=== PATIENT | male | born 1965 | race Caucasian/White ===

== ENCOUNTER 2021-06-09 19:14 | Inpatient (IN) ==
[2021-06-09] MEDS ORDERED: ALBUT/IPRATROP 3MG/0.5MG NEB 3 ML VIAL NEB STA (20:27)
[2021-06-09] MEDS ORDERED: dexAMETHasone**PF** 10 MG/ML VIAL IV ONE (20:27)
[2021-06-09] MEDS ORDERED: SODIUM CHLORIDE 0.9% 1000ML 500 ML IV ONE (20:28)
--- NOTE | 2021-06-09 20:31 | Emergency Department Note ---
Impression & Plan Hypoxia, SOB (shortness of breath), Pneumonia, COVID-19 ED Provider Note NAME: ECTOR BLANKENSHIP AGE: 55 SEX: M : 1965 ARRIVES VIA: Walk-In INFORMANT: [Patient] ED PROVIDER(S): [Chico Hanley MD] CHIEF COMPLAINT: Illness HISTORY OF PRESENT ILLNESS: The patient is a 55-year-old male presents with flulike symptoms. He has had a cough and some chest congestion with fatigue for the last 10 days. 7 days ago, he tested positive for COVID-19. The patient is not vaccinated against COVID-19. The patient is short of breath with any exertion. He states that he still feels quite washed out. He was told that he could return to work today given the timing although, did not feel well enough. The patient has no history of lung disease or heart disease. He states he is ot herwise healthy. He is not a smoker, he does not vape. REVIEW OF SYSTEMS: See HPI for pertinent positives and negatives. A total of ten systems were reviewed and were otherwise negative. PMHx/PSHx: See Below SOCIAL HISTORY: See Below. PHYSICAL EXAM: GENERAL: Patient is in no acute distress. HEENT: No acute trauma, normocephalic atraumatic, mucous membranes moist, no nasal congestion, no scleral icterus. NECK: No stridor, no adenopathy, no meningismus, trachea is midline. LUNGS: Crackles at both bases especially on the right, no respiratory distress noted. No wheezing. HEART: Without murmurs gallops or rubs, regular rate and rhythm. ABDOMEN: Soft, nontender, bowel sounds positive, no hernias, no peritonitis. EXTREMITIES: No cyanosis or edema, full range of motion of all the joints without pain or difficulty, no signs for acute trauma. NEUROLOGIC: Oriented x 3, no acute motor or sensory deficits, no focal weakness. SKIN: No rash, no jaundice, no diaphoresis. DIFFERENTIAL DIAGNOSIS: Reactive airway disease, pneumonia, pneumothorax, COPD, CHF, infection, COVID- 19, cardiac ischemia, pulmonary embolism, bronchitis, musculoskeletal, gastrointestinal, as well as other pathologies. EMERGENCY DEPARTMENT COURSE/PROCEDURES: Critical Care Note: I have personally spent 47 minutes of critical care time in the direct management of this patient. This includes bedside care, interpretation of diagnostic studies, and testing, discussion with consultants, patient, and family members, and other required patient management activities. This 47 minutes is in excess of all separately billable procedures. MEDICAL DECISION MAKING: There is no leukocytosis or worrisome anemia. There is a slight elevation to the platelet count. Sodium was somewhat low but not critical or in need of emergent correction. No kidney failure. Lactic acid level was not elevated making sepsis less likely. No worrisome liver enzyme elevation. The patient did test positive for Covid as an outpatient. Repeat Covid testing here in the ED is pending. Chest film shows a bilateral pneumonia consistent with a Covid pneumonia. On exam, the patient was hypoxic without oxygen. He had crackles in both lower lung faith. The patient was given IV saline, IV Decadron and albuterol via MDI, he is resting comfortably. He seems to be doing well with oxygen supplementation. The patient presents hypoxic and short of breath. He has bilateral pneumonia by chest x-ray. He has a Covid infection and with his hypoxia, he requires a hospital stay. I spoke to the patient and case maker. The on-call hospitalist was consulted. Past Med/Surg History Medical History (Updated 06/10/21 @ 00:03 by Chico Hanley MD) No significant medical problems Social History Smoking Status: Never smoker Feels Safe at Home: Yes Allergies Allergies Allergy/AdvReac Type Severity Reaction Status Date / Time No Known Allergies Allergy Unverified 06/09/21 20:18 Home Meds Home Medications Medication Instructions Recorded Confirmed No Known Home Medications 06/09/21 06/09/21 Results & Data (ED) Vital Signs Vital Signs - 24 hr 06/09/21 19:26 06/09/21 19:38 06/09/21 20:00 Temperature 37.2 C Temperature Source Temporal Artery Scan Pulse Rate 102 H 96 H 92 H Pulse Rate [Finger] Pulse Rate from SpO2 Sensor 97 H 91 H Pulse Rhythm Respiratory Rate 16 25 H 12 Respiratory Effort / Characteristics Non-Labored Spontaneous Respiratory Depth Normal Blood Pressure 126/78 142/76 H Blood Pressure Mean 94 98 Blood Pressure Position Sitting Pulse Oximetry 87 L 90 94 Oxygen Delivery Method Room Air Oxygen Flow Rate Sepsis Recent Fever Within 48 Hours No Sepsis New/Unexplained Change in Mental Status N/A Sepsis Action Taken by Nursing No Action Required 06/09/21 20:19 06/09/21 20:31 06/09/21 20:36 Temperature Temperature Source Pulse Rate 90 92 H Pulse Rate [Finger] 90 Pulse Rate from SpO2 Sensor 93 H Pulse Rhythm Regular Respiratory Rate 18 18 20 Respiratory Effort / Characteristics Non-Labored Spontaneous Respiratory Depth Blood Pressure 160/69 H Blood Pressure Mean 99 Blood Pressure Position Pulse Oximetry 92 88 L 94 Oxygen Delivery Method Nasal Cannula Nasal Cannula Oxygen Flow Rate 4 4 Sepsis Recent Fever Within 48 Hours Sepsis New/Unexplained Change in Mental Status Sepsis Action Taken by Nursing 06/09/21 21:00 06/09/21 21:30 06/09/21 22:00 Temperature Temperature Source Pulse Rate 96 H 95 H 94 H Pulse Rate [Finger] Pulse Rate from SpO2 Sensor 96 H 95 H 94 H Pulse Rhythm Respiratory Rate 18 14 23 Respiratory Effort / Characteristics Respiratory Depth Blood Pressure 150/76 H 151/90 H 140/84 Blood Pressure Mean 100 110 102 Blood Pressure Position Pulse Oximetry 87 L 94 90 Oxygen Delivery Method Oxygen Flow Rate Sepsis Recent Fever Within 48 Hours Sepsis New/Unexplained Change in Mental Status Sepsis Action Taken by Nursing 06/09/21 22:30 Temperature Temperature Source Pulse Rate 93 H Pulse Rate [Finger] Pulse Rate from SpO2 Sensor 92 H Pulse Rhythm Respiratory Rate 14 Respiratory Effort / Characteristics Respiratory Depth Blood Pressure 138/80 Blood Pressure Mean 99 Blood Pressure Position Pulse Oximetry 92 Oxygen Delivery Method Oxygen Flow Rate Sepsis Recent Fever Within 48 Hours Sepsis New/Unexplained Change in Mental Status Sepsis Action Taken by Retirement Medications Current Medication List: was personally reviewed by me Laboratory Data Attestation: I reviewed the patient's lab results. Result diagrams: 06/09/21 19:45 06/09/21 19:45 Lab Results 06/09/21 06/09/21 06/09/21 Range/Units 19:45 19:45 19:45 WBC 9.30 (4.8-10.8) K/uL RBC 4.82 (4.7-6.1) M/uL Hgb 13.9 L (14.0-18.0) g/dL Hct 40.0 L (42-52) % MCV 83.0 (80-100) fL MCH 28.8 (25-34) pg MCHC 34.8 (32-36) g/dL RDW Std Deviation 39.3 (36.4-46.3) fL RDW Coeff of Coco 12.9 (11.5-14.5) % Plt Count 455 H (130-400) K/uL MPV 9.7 (7.4-10.4) fL Immature Gran % (Auto) 0.3 % Neut % (Auto) 75.3 % Lymph % (Auto) 11.3 % [place] % (Auto) 12.3 % Eos % (Auto) 0.6 % Baso % (Auto) 0.2 % Neut # (Auto) 7.00 H (1.4-6.5) K/uL Lymph # (Auto) 1.05 L (1.2-3.4) K/uL [place] # (Auto) 1.14 H (0.11-0.59) K/uL Eos # (Auto) 0.06 (0-0.5) K/uL Baso # (Auto) 0.02 (0-0.2) K/uL Immature Gran # (Auto) 0.03 H (0.00-0.02) K/uL APTT 27.6 (21.0-31.0) Seconds PTT Ratio 1.0 Sodium 134 L (136-145) mmol/L Potassium 3.9 (3.5-5.1) mmol/L Chloride 101 (98-107) mmol/L Carbon Dioxide 25 (21-32) mmol/L Anion Gap 9.0 (3-11) BUN 9 (7-18) mg/dl Creatinine 0.80 (0.6-1.4) mg/dl Est Cr Clr Drug Dosing 122.4 ml/min Est GFR ( Amer) 115.7 ml/min Est GFR (Non-Af Amer) 99.9 ml/min BUN/Creatinine Ratio 10.6 (10-20) Glucose 110 H (70-99) mg/dl Lactate (0.4-2.0) mmol/L Calcium 8.9 (8.5-10.1) mg/dl Magnesium (1.8-2.4) mg/dl Total Bilirubin 0.7 (0.2-1) mg/dl AST 40 H (15-37) U/L ALT 48 (12-78) U/L Alkaline Phosphatase 59 (45-117) U/L Total Protein 7.5 (6.4-8.2) gm/dl Albumin 2.6 L (3.4-5.0) gm/dl Globulin 4.9 H (2.5-4.0) gm/dl Albumin/Globulin Ratio 0.5 L (0.9-2) Specimen Hemolysis COVID-19 Eval Order 06/09/21 06/09/21 06/09/21 Range/Units 19:45 21:09 22:10 WBC (4.8-10.8) K/uL RBC (4.7-6.1) M/uL Hgb (14.0-18.0) g/dL Hct (42-52) % MCV (80-100) fL MCH (25-34) pg MCHC (32-36) g/dL RDW Std Deviation (36.4-46.3) fL RDW Coeff of Coco (11.5-14.5) % Plt Count (130-400) K/uL MPV (7.4-10.4) fL Immature Gran % (Auto) % Neut % (Auto) % Lymph % (Auto) % [place] % (Auto) % Eos % (Auto) % Baso % (Auto) % Neut # (Auto) (1.4-6.5) K/uL Lymph # (Auto) (1.2-3.4) K/uL [place] # (Auto) (0.11-0.59) K/uL Eos # (Auto) (0-0.5) K/uL Baso # (Auto) (0-0.2) K/uL Immature Gran # (Auto) (0.00-0.02) K/uL APTT (21.0-31.0) Seconds PTT Ratio Sodium (136-145) mmol/L Potassium (3.5-5.1) mmol/L Chloride (98-107) mmol/L Carbon Dioxide (21-32) mmol/L Anion Gap (3-11) BUN (7-18) mg/dl Creatinine (0.6-1.4) mg/dl Est Cr Clr Drug Dosing ml/min Est GFR ( Amer) ml/min Est GFR (Non-Af Amer) ml/min BUN/Creatinine Ratio (10-20) Glucose (70-99) mg/dl Lactate 1.1 (0.4-2.0) mmol/L Calcium (8.5-10.1) mg/dl Magnesium 2.6 H (1.8-2.4) mg/dl Total Bilirubin (0.2-1) mg/dl AST (15-37) U/L ALT (12-78) U/L Alkaline Phosphatase (45-117) U/L Total Protein (6.4-8.2) gm/dl Albumin (3.4-5.0) gm/dl Globulin (2.5-4.0) gm/dl Albumin/Globulin Ratio (0.9-2) Specimen Hemolysis COVID-19 Eval Order Covid19 at [facility] Administered Medications Remdesivir 200 mg/ Sodium (Chloride) 250 mls @ 125 mls/hr IV ONE STA; Protocol Stop: 06/09/21 23:57 Last Admin: 06/09/21 22:38 Dose: 125 mls/hr Documented by: [id number] Discontinued Medications Albuterol (Albut/Ipratrop 3mg/0.5mg Neb 3 Ml Vial) 3 ml NEB NOW STA Stop: 06/09/21 20:28 Last Admin: 06/09/21 20:35 Dose: 3 ml Documented by: [id number] Dexamethasone Sodium Phosphate (DexamethasonePf 10 Mg/Ml Vial) 6 mg IV NOW ONE Stop: 06/09/21 20:28 Last Admin: 06/09/21 20:33 Dose: 6 mg Documented by: [id number] Sodium Chloride (Nss 1000ml) 500 mls @ 999 mls/hr IV .Q31M ONE Stop: 06/09/21 20:58 Last Infusion: 06/09/21 21:15 Dose: 0 mls/hr Documented by: [id number] Admin: 06/09/21 20:33 Dose: 999 mls/hr Documented by: [id number] Imaging Data Radiologist's Impression: Chest X-Ray 06/09/21 20:27 XR chest 1V portable CLINICAL HISTORY: Shortness of breath. COMPARISON STUDY: No previous studies for comparison. FINDINGS: No pneumothorax or pleural effusion is noted. There is mild enlargement of the cardiac silhouette. Moderate to extensive bilateral airspace opacities are present. IMPRESSION: Moderate to extensive bilateral airspace opacities suggestive of an infectious process such as viral pneumonia. Radiographic follow-up to ensure resolution is recommended. ACT 112: Negative or not required by law. Electronically signed by: Anthony Grigsby M.D. 06/09/2021 9:03 PM Discharge Plan Visit Data Chief Complaint: Illness Stated Complaint: COVID+, SOB, WEAK ED Provider: Chico Hanley Discharge Problem: Hypoxia, SOB (shortness of breath), Pneumonia, COVID-19 Patient Disposition: Admitted As Inpatient Condition: Fair Forms Stand Alone Forms: [place] Prescriptions Prescriptions: No Action No Known Home Medications RF: 0 Referrals Referrals: PCP,NO [Primary Care Provider] -
[2021-06-09 20:49] LABS: Basophils # (auto) 0.02 K/uL (0-0.2); Basophils % (auto) 0.2 %; Eosinophils # (auto) 0.06 K/uL (0-0.5); Eosinophils % (auto) 0.6 %; Hemoglobin 13.9 g/dL (14.0-18.0); Immature Granulocytes # (auto) 0.03 K/uL (0.00-0.02); Immature Granulocytes % (auto) 0.3 %; Lymphocytes # (auto) 1.05 K/uL (1.2-3.4); Lymphocytes % (auto) 11.3 %; Mean Corpuscular Hemoglobin 28.8 pg (25-34); Mean Corpuscular Hgb Conc 34.8 g/dL (32-36); Mean Platelet Volume 9.7 fL (7.4-10.4); Monocytes # (auto) 1.14 K/uL (0.11-0.59); Monocytes % (auto) 12.3 %; Neutrophils % (auto) 75.3 %; Platelet Count 455 K/uL (130-400); RDW Coefficient of Variation 12.9 % (11.5-14.5); RDW Standard Deviation 39.3 fL (36.4-46.3); Red Blood Count 4.82 M/uL (4.7-6.1)
--- NOTE | 2021-06-09 21:04 | XRay Report ---
XR chest 1V portable CLINICAL HISTORY: Shortness of breath. COMPARISON STUDY: No previous studies for comparison. FINDINGS: No pneumothorax or pleural effusion is noted. There is mild enlargement of the cardiac silh ouette. Moderate to extensive bilateral airspace opacities are present. IMPRESSION: Moderate to extensive bilateral airspace opacities suggestive of an infectious process s uch as viral pneumonia. Radiographic follow-up to ensure resolution is recommended. ACT 112: Negative or not required by law. Electronically signed by: Anthony Grigsby M.D. 06/09/2021 9:03 PM
[2021-06-09 21:10] LABS: Albumin Globulin Ratio 0.5 (0.9-2); Albumin Level 2.6 gm/dl (3.4-5.0); BUN Creatinine Ratio 10.6 (10-20); Bilirubin,Total 0.7 mg/dl (0.2-1); Calcium 8.9 mg/dl (8.5-10.1); Creatinine Clr Calc Pharmacy 122.4 ml/min; Est GFR (African American) 115.7 ml/min; Est GFR (Non-African American) 99.9 ml/min; Globulin 4.9 gm/dl (2.5-4.0); Potassium 3.9 mmol/L (3.5-5.1); Total Protein 7.5 gm/dl (6.4-8.2)
[2021-06-09 21:44] LABS: Partial Thromboplastin Time 27.6 Seconds (21.0-31.0)
--- NOTE | 2021-06-09 21:52 | History & Physical Report ---
Date of Service June 09, 2021 Assessment & Plan (1) Acute hypoxemic respiratory failure: Plan: Secondary to severe COVID-19 pneumonia Situational hypertension Possible chronic BP elevation given cardiomegaly on CXR New onset anemia, no overt source of bleed Hyperglycemia rule out DM Medical telemetry Supplemental O2 Decadron, Remdesivir for severe COVID-19 pneumonia (Patient was counseled regarding potential adverse effects from Remdesivir therapy and provided with patient education sheet.) Pulmonary consult if without improvement Monitor BP, initiate Amlodipine if with persistent elevation Anemia work-up, transfuse PRBC if hemoglobin less than 7 and or for symptomatic anemia Check hemoglobin A1c DVT prophylaxis. Lovenox subcu Full code Text document was generated using [employer] voice recognition software. It may contain grammatical or spelling errors. Kindly contact undersigned for clarification of any documentation item in question. History of Present Illness Chief Complaint: Worsening shortness of breath, history Covid Primary Care Provider: NO PCP Patient would like to be set up with a [facility] provider upon discharge. No significant medical history. 10 days ago patient had dry cough symptoms with some chest congestion and fatigue symptoms. No chest pain. Sick COVID-19 contacts at home. Outpatient COVID-19 test from urgent care center from last week was positive. Supportive management and isolation recommended. Patient has not received the Covid 19 vaccine. Cough symptoms noted to be clear with worsening shortness of breath as per patient. O2 sats noted to be 80s on room air upon arrival at the ER. Decadron and neb treatment administered at the ER. Medical History as above 2016 colonoscopy was normal Surgical History : Inguinal hernia repair, tonsillectomy/adenoidectomy Family History : Kidney cancer Personal/Social history : Non-smoker, occasional EtOH intake, [employer] employee Allergies Allergy/AdvReac Type Severity Reaction Status Date / Time No Known Allergies Allergy Unverified 06/09/21 20:18 Home Medications Medication Instructions Recorded Confirmed Type No Known Home Medications 06/09/21 06/09/21 History Past Med/Surg History Medical History (Updated 06/10/21 @ 10:02 by Andrew Reddy MD) No significant medical problems Social History Smoking Status: Former smoker Hx Alcohol Use: Yes Alcohol type: beer Hx Substance Use: No Preferred Language: Ghanaian Communication Ability: Effective General Passenger Agent Required: No Beliefs That Will Affect Care: None Current Living Situation: Spouse and Family Current Living Situation Comment: and children Other Information That Helps Us Care for You: No Feels Safe at Home: Yes Safety Concerns: Feels Safe At This Time Assistive Devices: None Assistive Devices Comment: reading glasses Review of Systems Review of Systems: As per HPI, all 10 systems reviewed, all other ROS negative Physical Exam Physical Exam: GENERAL: Comfortable, pleasant, obese, no respiratory distress SKIN: Normal color, warm HEENT: [place] palpebral conjunctivae, no ptosis, dry buccal mucosa, nasal cannula in place NECK : Supple, no tenderness CHEST : Decreased breath sounds, occasional expiratory wheezes, no tenderness HEART : RRR, no obvious murmurs ABDOMEN: no distention, nontender EXTREMITIES : No LE swelling/tenderness, no other conspicuous deformities noted NEUROLOGIC : Coherent, no facial asymmetry, no other gross focality Results & Data Results & Data ([facility]) Vital Signs (Past 12 Hours) Vital Signs Temp Pulse Pulse Resp BP Pulse Ox 06/09/21 20:36 90 20 94 06/09/21 20:31 92 H 18 160/69 H 88 L 06/09/21 20:19 90 18 92 06/09/21 20:00 92 H 12 142/76 H 94 06/09/21 19:38 96 H 25 H 90 06/09/21 19:26 37.2 C 102 H 16 126/78 87 L Laboratory Results Laboratory Results WBC 9.30 K/uL (4.8-10.8) 06/09/21 19:45 RBC 4.82 M/uL (4.7-6.1) 06/09/21 19:45 Hgb 13.9 g/dL (14.0-18.0) L 06/09/21 19:45 Hct 40.0 % (42-52) L 06/09/21 19:45 MCV 83.0 fL (80-100) 06/09/21 19:45 MCH 28.8 pg (25-34) 06/09/21 19:45 MCHC 34.8 g/dL (32-36) 06/09/21 19:45 RDW Std Deviation 39.3 fL (36.4-46.3) 06/09/21 19:45 RDW Coeff of Coco 12.9 % (11.5-14.5) 06/09/21 19:45 Plt Count 455 K/uL (130-400) H 06/09/21 19:45 MPV 9.7 fL (7.4-10.4) 06/09/21 19:45 Immature Gran % (Auto) 0.3 % 06/09/21 19:45 Neut % (Auto) 75.3 % 06/09/21 19:45 Lymph % (Auto) 11.3 % 06/09/21 19:45 [place] % (Auto) 12.3 % 06/09/21 19:45 Eos % (Auto) 0.6 % 06/09/21 19:45 Baso % (Auto) 0.2 % 06/09/21 19:45 Neut # (Auto) 7.00 K/uL (1.4-6.5) H 06/09/21 19:45 Lymph # (Auto) 1.05 K/uL (1.2-3.4) L 06/09/21 19:45 [place] # (Auto) 1.14 K/uL (0.11-0.59) H 06/09/21 19:45 Eos # (Auto) 0.06 K/uL (0-0.5) 06/09/21 19:45 Baso # (Auto) 0.02 K/uL (0-0.2) 06/09/21 19:45 Immature Gran # (Auto) 0.03 K/uL (0.00-0.02) H 06/09/21 19:45 APTT 27.6 Seconds (21.0-31.0) 06/09/21 19:45 PTT Ratio 1.0 06/09/21 19:45 Sodium 134 mmol/L (136-145) L 06/09/21 19:45 Potassium 3.9 mmol/L (3.5-5.1) 06/09/21 19:45 Chloride 101 mmol/L (98-107) 06/09/21 19:45 Carbon Dioxide 25 mmol/L (21-32) 06/09/21 19:45 Anion Gap 9.0 (3-11) 06/09/21 19:45 BUN 9 mg/dl (7-18) 06/09/21 19:45 Creatinine 0.80 mg/dl (0.6-1.4) 06/09/21 19:45 Est Cr Clr Drug Dosing 122.4 ml/min 06/09/21 19:45 Est GFR ( Amer) 115.7 ml/min 06/09/21 19:45 Est GFR (Non-Af Amer) 99.9 ml/min 06/09/21 19:45 BUN/Creatinine Ratio 10.6 (10-20) 06/09/21 19:45 Glucose 110 mg/dl (70-99) H 06/09/21 19:45 Lactate 1.1 mmol/L (0.4-2.0) 06/09/21 21:09 Calcium 8.9 mg/dl (8.5-10.1) 06/09/21 19:45 Magnesium 2.6 mg/dl (1.8-2.4) H 06/09/21 19:45 Total Bilirubin 0.7 mg/dl (0.2-1) 06/09/21 19:45 AST 40 U/L (15-37) H 06/09/21 19:45 ALT 48 U/L (12-78) 06/09/21 19:45 Alkaline Phosphatase 59 U/L (45-117) 06/09/21 19:45 Total Protein 7.5 gm/dl (6.4-8.2) 06/09/21 19:45 Albumin 2.6 gm/dl (3.4-5.0) L 06/09/21 19:45 Globulin 4.9 gm/dl (2.5-4.0) H 06/09/21 19:45 Albumin/Globulin Ratio 0.5 (0.9-2) L 06/09/21 19:45 Specimen Hemolysis 06/09/21 19:45 Impressions Chest X-Ray 06/09/21 20:27 XR chest 1V portable CLINICAL HISTORY: Shortness of breath. COMPARISON STUDY: No previous studies for comparison. FINDINGS: No pneumothorax or pleural effusion is noted. There is mild enlargement of the cardiac silhouette. Moderate to extensive bilateral airspace opacities are present. IMPRESSION: Moderate to extensive bilateral airspace opacities suggestive of an infectious process such as viral pneumonia. Radiographic follow-up to ensure resolution is recommended. ACT 112: Negative or not required by law. Electronically signed by: Anthony Grigsby M.D. 06/09/2021 9:03 PM
[2021-06-09] MEDS ORDERED: REMDESIVIR 200 MG in SODIUM CHLORIDE 0.9% 210 ML IV STA (21:58)
[2021-06-10] MEDS ORDERED: PROMETHAZINE HCL 12.5 MG in SODIUM CHLORIDE 0.9% 50 ML IV PRN (01:27)
[2021-06-10] MEDS ORDERED: ACETAMINOPHEN 325 MG TAB PO PRN (01:27)
[2021-06-10] MEDS ORDERED: NSS + 20MEQ KCL 20 MEQ/1,000 ML BAG IV ONE (02:00)
[2021-06-10 06:24] LABS: Basophils # (auto) 0.01 K/uL (0-0.2); Basophils % (auto) 0.2 %; Hematocrit (blood only) 37.3 % (42-52); Hemoglobin 12.7 g/dL (14.0-18.0); Immature Granulocytes # (auto) 0.02 K/uL (0.00-0.02); Immature Granulocytes % (auto) 0.3 %; Lymphocytes # (auto) 0.62 K/uL (1.2-3.4); Mean Corpuscular Hemoglobin 28.3 pg (25-34); Mean Corpuscular Volume 83.3 fL (80-100); Mean Platelet Volume 9.4 fL (7.4-10.4); Monocytes # (auto) 0.29 K/uL (0.11-0.59); Monocytes % (auto) 4.7 %; Neutrophils # (auto) 5.24 K/uL (1.4-6.5); Neutrophils % (auto) 84.8 %; Platelet Count 435 K/uL (130-400); RDW Coefficient of Variation 13.1 % (11.5-14.5); RDW Standard Deviation 39.7 fL (36.4-46.3); Red Blood Count 4.48 M/uL (4.7-6.1); Reticulocytes # 0.05 10^6/uL (0.02-0.10); White Blood Count 6.18 K/uL (4.8-10.8)
[2021-06-10 06:55] LABS: Albumin Level 2.4 gm/dl (3.4-5.0); BUN Creatinine Ratio 14.3 (10-20); Calcium 8.3 mg/dl (8.5-10.1); Est GFR (African American) 121.6 ml/min; Est GFR (Non-African American) 104.9 ml/min; Potassium 4.3 mmol/L (3.5-5.1)
[2021-06-10 07:00] LABS: Albumin Globulin Ratio 0.5 (0.9-2); Bilirubin,Total 0.5 mg/dl (0.2-1); Ferritin 1055.5 ng/ml (8-388); Globulin 4.8 gm/dl (2.5-4.0); Total Protein 7.2 gm/dl (6.4-8.2)
[2021-06-10 07:13] LABS: Folate (Folic Acid) 12.2 ng/ml (>5.38)
[2021-06-10] MEDS: LEVALBUTEROL TARTRATE 15 GM HFA.AER.AD INH SCH ×4 (07:27→19:21)
[2021-06-10 07:39] LABS: Estimated Average Glucose 134 mg/dl; Hemoglobin A1C 6.3 % (4.5-5.6)
[2021-06-10] MEDS: dexAMETHasone 6 MG in SYRINGE 0 ML IV SCH (08:36)
[2021-06-10] MEDS: ENOXAPARIN INJ 40 MG/0.4 ML SYR SQ SCH (08:36)
--- NOTE | 2021-06-10 17:23 | Hospitalist Progress Note ---
Date of Service June 10, 2021 Assessment & Plan (1) Acute hypoxemic respiratory failure: Plan: Acute respiratory failure with hypoxia Multifocal COVID-19 pneumonia CXR:Moderate to extensive bilateral airspace opacities suggestive of an infectious process such as viral pneumonia. Radiographic follow-up to ensure resolution is recommended. Continue dexamethasone, remdesivir Monitor LFTs Continue supplemental oxygen Consider pulmonary evaluation if needed Consider CTA to rule out PE if no improvement Lasix as needed Elevated Blood Pressure on presentation Likely situational No known history of hypertension Monitor BP Iron deficiency anemia Ferritin levels elevated likely secondary to acute infection Plan to start on Iron supplements Prediabetes HbA1C: 6.3 Consider Insulin therapy if needed DVT Px; Lovenox SQ Code Status Full code Admission and Anticipated Discharge Date Admission Date: June 09, 2021 Subjective Patient is seen and examined bedside Still has significant dyspnea on exertion but better since presentation Reports cough with minimal clear expectoration Denies chest pain, dizziness, nausea, vomiting, abdominal pain, diarrhea, rhinitis Offers no other complaints Saturating low 90s on 6 L of supplemental oxygen. Review of Systems Review of Systems: All systems reviewed & are unremarkable except as noted in Subjective Physical Exam Physical Exam: Physical Exam: Vitals signs as noted above General Appearance:Moderately built and nourished, no apparent distress Head: normocephalic, Atraumatic Eyes: normal inspection, EOMI Neck: supple, Trachea midline Respiratory/Chest: Decreased breath sounds, B/L crackles Cardiovascular: S1, S2, No murmur Abdomen/GI:Soft, Non tender, Bowel sounds present Extremities/Musculoskeletal:normal inspection, no edema Neurologic/Psych:AAOX3, grossly no focal neurological deficits Skin: normal color, warm Results & Data Results & Data ([facility]) Vital Signs (Past 12 Hours) Vital Signs Temp Pulse Pulse Resp BP BP Pulse Ox 06/10/21 16:37 95 H 06/10/21 16:01 36.6 C 90 20 132/76 90 06/10/21 15:49 81 20 90 06/10/21 11:53 36.7 C 90 21 149/72 H 90 06/10/21 11:37 85 16 90 06/10/21 09:23 72 06/10/21 07:46 36.6 C 80 19 125/71 91 06/10/21 07:33 80 18 94 Laboratory Results Short CBC 08/24/21 08/25/21 Range/Units 19:45 05:53 WBC 9.30 6.18 (4.8-10.8) K/uL Hgb 13.9 L 12.7 L (14.0-18.0) g/dL Hct 40.0 L 37.3 L (42-52) % Plt Count 455 H 435 H (130-400) K/uL BMP 06/09/21 06/10/21 19:45 05:53 Sodium 134 L 136 Potassium 3.9 4.3 Chloride 101 104 Carbon Dioxide 25 26 BUN 9 10 Creatinine 0.80 0.71 Glucose 110 H 172 H Calcium 8.9 8.3 L Liver Function 06/09/21 06/10/21 Range/Units 19:45 05:53 Total Bilirubin 0.7 0.5 (0.2-1) mg/dl AST 40 H 30 (15-37) U/L ALT 48 47 (12-78) U/L Alkaline Phosphatase 59 58 (45-117) U/L Albumin 2.6 L 2.4 L (3.4-5.0) gm/dl
[2021-06-10] MEDS: REMDESIVIR 100 MG in SODIUM CHLORIDE 0.9% 230 ML IV SCH (19:27)
[2021-06-10] MEDS: SODIUM CHLORIDE 0.9% 10ML FLUSH IV SCH (20:45)
[2021-06-11 07:18] LABS: Hematocrit (blood only) 38.9 % (42-52); Hemoglobin 13.3 g/dL (14.0-18.0); Mean Corpuscular Hemoglobin 28.4 pg (25-34); Mean Corpuscular Hgb Conc 34.2 g/dL (32-36); Mean Corpuscular Volume 82.9 fL (80-100); Mean Platelet Volume 9.8 fL (7.4-10.4); Platelet Count 487 K/uL (130-400); RDW Coefficient of Variation 13.3 % (11.5-14.5); RDW Standard Deviation 40.1 fL (36.4-46.3); Red Blood Count 4.69 M/uL (4.7-6.1); White Blood Count 15.15 K/uL (4.8-10.8)
[2021-06-11 07:48] LABS: Albumin Level 2.3 gm/dl (3.4-5.0); BUN Creatinine Ratio 21.7 (10-20); Bilirubin Direct 0.1 mg/dl (0-0.2); C Reactive Protein 9.81 mg/dl (0-0.29); Calcium 8.7 mg/dl (8.5-10.1); Creatinine Clr Calc Pharmacy 145.9 ml/min; Est GFR (African American) 124.5 ml/min; Est GFR (Non-African American) 107.4 ml/min; Magnesium 2.5 mg/dl (1.8-2.4); Potassium 4.5 mmol/L (3.5-5.1)
[2021-06-11 07:51] LABS: Bilirubin,Total 0.3 mg/dl (0.2-1); Total Protein 6.8 gm/dl (6.4-8.2)
[2021-06-11] MEDS: LEVALBUTEROL TARTRATE 15 GM HFA.AER.AD INH SCH ×4 (07:58→19:33)
[2021-06-11] MEDS: dexAMETHasone 6 MG in SYRINGE 0 ML IV SCH (08:44)
[2021-06-11] MEDS: ENOXAPARIN INJ 40 MG/0.4 ML SYR SQ SCH (08:44)
[2021-06-11] MEDS ORDERED: POLYETHYLENE (MIRALAX) 17 GM PACK PO PRN (13:55)
[2021-06-11] MEDS ORDERED: DOCUSATE SODIUM 100 MG CAP PO PRN (13:57)
--- NOTE | 2021-06-11 17:34 | Hospitalist Progress Note ---
Date of Service June 11, 2021 Assessment & Plan (1) Acute hypoxemic respiratory failure: Plan: Acute respiratory failure with hypoxia Multifocal COVID-19 pneumonia CXR:Moderate to extensive bilateral airspace opacities suggestive of an infectious process such as viral pneumonia. Radiographic follow-up to ensure resolution is recommended. Continue dexamethasone, remdesivir Day #2 Monitor LFTs Continue supplemental oxygen Consider pulmonary evaluation if needed Consider CTA to rule out PE if no improvement Lasix as needed Encourage to Prone Leukocytosis likely secondary to steroids Elevated Blood Pressure on presentation Likely situational No known history of hypertension Monitor BP Bp stable Iron deficiency anemia Ferritin levels elevated likely secondary to acute infection Plan to start on Iron supplements Prediabetes HbA1C: 6.3 Consider Insulin therapy if needed DVT Px; Lovenox SQ Code Status Full code Admission and Anticipated Discharge Date Admission Date: June 09, 2021 Subjective Patient is seen and examined bedside Less cough, dyspnea today No new complaints Appetite slowly improving Still requiring 6 L of oxygen to maintain saturations No distress on exam Review of Systems Review of Systems: All systems reviewed & are unremarkable except as noted in Subjective Physical Exam Physical Exam: Physical Exam: Vitals signs as noted above General Appearance:Moderately built and nourished, no apparent distress Head: normocephalic, Atraumatic Eyes: normal inspection, EOMI Neck: supple, Trachea midline Respiratory/Chest: Decreased breath sounds, CTA Cardiovascular: S1, S2, No murmur Abdomen/GI:Soft, Non tender, Bowel sounds present Extremities/Musculoskeletal:normal inspection, no edema Neurologic/Psych:AAOX3, grossly no focal neurological deficits Skin: normal color, warm Results & Data Results & Data ([facility]) Vital Signs (Past 12 Hours) Vital Signs Temp Pulse Pulse Resp BP Pulse Ox 06/11/21 16:00 73 06/11/21 15:48 36.7 C 82 18 124/73 90 06/11/21 14:46 73 20 92 06/11/21 11:21 36.6 C 88 18 121/71 90 06/11/21 11:09 89 18 92 06/11/21 07:59 75 22 90 06/11/21 07:21 36.7 C 64 18 125/73 91 Laboratory Results Short CBC 06/11/21 Range/Units 06:48 WBC 15.15 H (4.8-10.8) K/uL Hgb 13.3 L (14.0-18.0) g/dL Hct 38.9 L (42-52) % Plt Count 487 H (130-400) K/uL BMP 06/11/21 06:48 Sodium 140 Potassium 4.5 Chloride 110 H Carbon Dioxide 28 BUN 15 Creatinine 0.67 Glucose 134 H Calcium 8.7 Liver Function 06/11/21 Range/Units 06:48 Total Bilirubin 0.3 (0.2-1) mg/dl Direct Bilirubin 0.1 (0-0.2) mg/dl AST 21 (15-37) U/L ALT 46 (12-78) U/L Alkaline Phosphatase 62 (45-117) U/L Albumin 2.3 L (3.4-5.0) gm/dl
[2021-06-11] MEDS: REMDESIVIR 100 MG in SODIUM CHLORIDE 0.9% 230 ML IV SCH (19:37)
[2021-06-11] MEDS: SODIUM CHLORIDE 0.9% 10ML FLUSH IV SCH (20:42)
[2021-06-12] MEDS: LEVALBUTEROL TARTRATE 15 GM HFA.AER.AD INH SCH ×2 (07:24→12:05)
[2021-06-12] MEDS: ENOXAPARIN INJ 40 MG/0.4 ML SYR SQ SCH (07:37)
[2021-06-12] MEDS: dexAMETHasone 6 MG in SYRINGE 0 ML IV SCH (07:38)
[2021-06-12 08:20] LABS: Alanine Aminotransferase 43 U/L (12-78); Albumin Level 2.4 gm/dl (3.4-5.0); Aspartate Aminotransferase 19 U/L (15-37); BUN Creatinine Ratio 17.5 (10-20); Blood Urea Nitrogen 15 mg/dl (7-18); Calcium 8.8 mg/dl (8.5-10.1); Carbon Dioxide 26 mmol/L (21-32); Chloride 108 mmol/L (98-107); Creatinine Clr Calc Pharmacy 111.1 ml/min; Est GFR (African American) 111.3 ml/min; Glucose 99 mg/dl (70-99); Potassium 3.9 mmol/L (3.5-5.1); Sodium 140 mmol/L (136-145)
[2021-06-12 08:23] LABS: Alkaline Phosphatase 51 U/L (45-117); Bilirubin Direct < 0.1 mg/dl (0-0.2); Bilirubin,Total 0.5 mg/dl (0.2-1); Total Protein 6.5 gm/dl (6.4-8.2)
[2021-06-12] MEDS ORDERED: OPTIRAY 320 125ml IV ONE (08:52)
--- NOTE | 2021-06-12 09:29 | CT Scan Report ---
CT ANGIOGRAM OF THE CHEST CLINICAL HISTORY: Hypoxia. Covid pneumonia. COMPARISON STUDY: Chest x-ray dated 06/09/2021. TECHNIQUE: Following the IV administration of 208 cc of Optiray 320, CT angiogram of the chest was pe rformed from the upper abdomen to the thoracic inlet utilizing the pulmonary embolus protocol. Images are reviewed in the axial, sagittal, and coronal planes. 3-D MIPS images are created and assessed. I V contrast was administered without complication. A dose lowering technique was utilized adhering to the principles of ALARA. The patient was scanned twice due to inadequate contrast opacification of t he pulmonary arteries on the initial attempt. The examination is compromised by motion artifact. CT DOSE: 1032.36 mGycm FINDINGS: Thyroid: Imaged portions of the thyroid gland are normal in size and attenuation. Thoracic aorta: The thoracic aorta is normal in caliber and demonstrates standard 3-vessel arch anato my. No dissection is seen. Pulmonary vasculature: The pulmonary trunk is normal in caliber. There are no filling defects identif ied in main, lobar, or segmental pulmonary branches to suggest pulmonary embolus. Evaluation of the p eripheral branches is degraded by motion artifact. Heart: The heart is enlarged and without pericardial effusion. Lungs and pleural spaces: Multifocal airspace consolidation is seen throughout both lungs. The trache a and central airways are clear. No pleural effusion is identified. Mediastinum: There is no mediastinal lymphadenopathy. Bell: Clear. Axillae: There is no axillary lymphadenopathy. Upper abdomen: There is a small hiatal hernia. The liver is enlarged and steatotic. Skeletal structures: No lytic or blastic bony lesions are seen. IMPRESSION: 1. There is no evidence of pulmonary embolus in the main, lobar, or segmental pulmonary arteries. 2. Cardiomegaly. 3. Multifocal airspace consolidation is consistent with the reported history of a viral pneumonia. Ra diographic follow-up to resolution is recommended. 4. Hepatomegaly and hepatic steatosis. 5. Additional findings as above. ACT 112: Negative or not required by law. Electronically signed by: Chico Calzada M.D. 06/12/2021 9:27 AM
--- NOTE | 2021-06-12 15:37 | Hospitalist Progress Note ---
Date of Service June 12, 2021 Assessment & Plan (1) Acute hypoxemic respiratory failure: Plan: Acute respiratory failure with hypoxia Multifocal COVID-19 pneumonia -CTA:There is no evidence of pulmonary embolus in the main, lobar, or segmental pulmonary arteries. Cardiomegaly. Multifocal airspace consolidation is consistent with the reported history of a viral pneumonia. Radiographic follow- up to resolution is recommended. Hepatomegaly and hepatic steatosis. -CXR:Moderate to extensive bilateral airspace opacities suggestive of an infectious process such as viral pneumonia. Radiographic follow-up to ensure resolution is recommended. Continue dexamethasone, remdesivir Day #3 Monitor LFTs Continue supplemental oxygen Lasix as needed Encourage to Prone Leukocytosis secondary to steroids Added budesonide Elevated Blood Pressure on presentation Likely situational No known history of hypertension Monitor BP Bp stable Iron deficiency anemia Ferritin levels elevated likely secondary to acute infection Plan to start on Iron supplements Prediabetes HbA1C: 6.3 Consider Insulin therapy if needed DVT Px; Lovenox SQ Code Status Full code Admission and Anticipated Discharge Date Admission Date: June 09, 2021 Subjective Patient is seen and examined bedside States feeling better No new complaints cough slowly improving Denies dyspnea Review of Systems Review of Systems: All systems reviewed & are unremarkable except as noted in Subjective Physical Exam Physical Exam: Physical Exam: Vitals signs as noted above General Appearance:Moderately built and nourished, no apparent distress Head: normocephalic, Atraumatic Eyes: normal inspection, EOMI Neck: supple, Trachea midline Respiratory/Chest: Decreased breath sounds, CTA Cardiovascular: S1, S2, No murmur Abdomen/GI:Soft, Non tender, Bowel sounds present Extremities/Musculoskeletal:normal inspection, no edema Neurologic/Psych:AAOX3, grossly no focal neurological deficits Skin: normal color, warm Results & Data Results & Data ([facility]) Vital Signs (Past 12 Hours) Vital Signs Temp Pulse Resp BP Pulse Ox 06/12/21 11:29 36.7 C 75 18 118/71 94 06/12/21 07:24 68 18 91 06/12/21 07:10 36.8 C 60 18 115/68 90 06/12/21 04:08 36.7 C 62 17 124/77 58 L Laboratory Results BMP 06/12/21 07:14 Sodium 140 Potassium 3.9 Chloride 108 H Carbon Dioxide 26 BUN 15 Creatinine 0.88 Glucose 99 Calcium 8.8 Liver Function 06/12/21 Range/Units 07:14 Total Bilirubin 0.5 (0.2-1) mg/dl Direct Bilirubin < 0.1 (0-0.2) mg/dl AST 19 (15-37) U/L ALT 43 (12-78) U/L Alkaline Phosphatase 51 (45-117) U/L Albumin 2.4 L (3.4-5.0) gm/dl
[2021-06-12] MEDS: LEVALBUTEROL HCL 0.63 MG/3 ML NEB NEB SCH (19:22)
[2021-06-12] MEDS: BUDESONIDE 0.5 MG/2 ML VIAL (PULMICORT) NEB SCH (19:22)
[2021-06-12] MEDS: REMDESIVIR 100 MG in SODIUM CHLORIDE 0.9% 230 ML IV SCH (20:07)
[2021-06-12] MEDS: SODIUM CHLORIDE 0.9% 10ML FLUSH IV SCH (21:34)
[2021-06-13 07:10] LABS: Albumin Level 2.4 gm/dl (3.4-5.0); Bilirubin Direct 0.1 mg/dl (0-0.2); Calcium 8.4 mg/dl (8.5-10.1); Est GFR (African American) 119.5 ml/min; Est GFR (Non-African American) 103.1 ml/min; Magnesium 2.5 mg/dl (1.8-2.4); Potassium 3.8 mmol/L (3.5-5.1)
[2021-06-13 07:13] LABS: Bilirubin,Total 0.4 mg/dl (0.2-1); Total Protein 6.4 gm/dl (6.4-8.2)
[2021-06-13] MEDS: LEVALBUTEROL HCL 0.63 MG/3 ML NEB NEB SCH ×2 (08:14→19:32)
[2021-06-13] MEDS: BUDESONIDE 0.5 MG/2 ML VIAL (PULMICORT) NEB SCH ×2 (08:14→19:32)
[2021-06-13] MEDS: dexAMETHasone 6 MG in SYRINGE 0 ML IV SCH (08:40)
[2021-06-13] MEDS: FERROUS SULFATE 325 MG TAB PO SCH (08:40)
[2021-06-13] MEDS: ENOXAPARIN INJ 40 MG/0.4 ML SYR SQ SCH (08:40)
--- NOTE | 2021-06-13 13:42 | Hospitalist Progress Note ---
Date of Service June 13, 2021 Assessment & Plan (1) Acute hypoxemic respiratory failure: Plan: Acute respiratory failure with hypoxia Multifocal COVID-19 pneumonia -CTA:There is no evidence of pulmonary embolus in the main, lobar, or segmental pulmonary arteries. Cardiomegaly. Multifocal airspace consolidation is consistent with the reported history of a viral pneumonia. Radiographic follow- up to resolution is recommended. Hepatomegaly and hepatic steatosis. -CXR:Moderate to extensive bilateral airspace opacities suggestive of an infectious process such as viral pneumonia. Radiographic follow-up to ensure resolution is recommended. Continue dexamethasone, Remdesivir Day #5 Monitor LFTs Lasix as needed Encourage to Prone Leukocytosis secondary to steroids Continue budesonide Titrate oxygen to keep Oxygen Sats > 92% May need 2 Step prior to discharge Elevated Blood Pressure on presentation Likely situational No known history of hypertension Monitor BP Bp stable Iron deficiency anemia Ferritin levels elevated likely secondary to acute infection Started on Iron supplements Prediabetes HbA1C: 6.3 Consider Insulin therapy if needed DVT Px; Lovenox SQ Code Status Full code Admission and Anticipated Discharge Date Admission Date: June 09, 2021 Subjective Patient is seen and examined bedside States having cough with expectoration Denies dyspnea, chest pain, nausea, dizziness, abd pain Appetite better Saturating well on 5L of supplemental oxygen Review of Systems Review of Systems: All systems reviewed & are unremarkable except as noted in Subjective Physical Exam 2 Physical Exam: Physical Exam: Vitals signs as noted above General Appearance:Moderately built and nourished, no apparent distress Head: normocephalic, Atraumatic Eyes: normal inspection, EOMI Neck: supple, Trachea midline Respiratory/Chest: Decreased breath sounds, CTA Cardiovascular: S1, S2, No murmur Abdomen/GI:Soft, Non tender, Bowel sounds present Extremities/Musculoskeletal:normal inspection, no edema Neurologic/Psych:AAOX3, grossly no focal neurological deficits Skin: normal color, warm Results & Data Results & Data ([facility]) Vital Signs (Past 12 Hours) Vital Signs Temp Pulse Pulse Resp BP BP Pulse Ox 06/13/21 11:40 36.9 C 68 19 111/64 95 06/13/21 08:15 58 L 16 94 06/13/21 08:00 57 L 06/13/21 07:39 36.5 C 54 L 18 121/73 95 06/13/21 03:39 37.0 C 56 L 18 133/77 93 Laboratory Results [facility] 06/13/21 06:09 Sodium 141 Potassium 3.8 Chloride 109 H Carbon Dioxide 27 BUN 16 Creatinine 0.74 Glucose 92 Calcium 8.4 L Liver Function 06/13/21 Range/Units 06:09 Total Bilirubin 0.4 (0.2-1) mg/dl Direct Bilirubin 0.1 (0-0.2) mg/dl AST 27 (15-37) U/L ALT 48 (12-78) U/L Alkaline Phosphatase 50 (45-117) U/L Albumin 2.4 L (3.4-5.0) gm/dl
[2021-06-13] MEDS: REMDESIVIR 100 MG in SODIUM CHLORIDE 0.9% 230 ML IV SCH (19:48)
[2021-06-13] MEDS: SODIUM CHLORIDE 0.9% 10ML FLUSH IV SCH (21:07)
[2021-06-14 07:43] LABS: Albumin Level 2.6 gm/dl (3.4-5.0); BUN Creatinine Ratio 18.7 (10-20); Bilirubin Direct 0.1 mg/dl (0-0.2); C Reactive Protein 1.77 mg/dl (0-0.29); Calcium 8.4 mg/dl (8.5-10.1); Creatinine Clr Calc Pharmacy 124.5 ml/min; Est GFR (Non-African American) 100.9 ml/min; Potassium 3.7 mmol/L (3.5-5.1)
[2021-06-14 07:46] LABS: Bilirubin,Total 0.4 mg/dl (0.2-1); Total Protein 6.4 gm/dl (6.4-8.2)
[2021-06-14] MEDS: BUDESONIDE 0.5 MG/2 ML VIAL (PULMICORT) NEB SCH ×2 (07:52→20:02)
[2021-06-14] MEDS: LEVALBUTEROL HCL 0.63 MG/3 ML NEB NEB SCH ×2 (07:52→20:02)
[2021-06-14] MEDS ORDERED: FUROSEMIDE 20 MG in SYRINGE 0 ML IV ONE (07:52)
[2021-06-14] MEDS ORDERED: FUROSEMIDE 40 MG/4 ML VIAL IV SCH (08:15)
[2021-06-14] MEDS ORDERED: POTASSIUM CHLORIDE CRTAB 20 MEQ TABCR PO ONE (08:15)
[2021-06-14] MEDS: FERROUS SULFATE 325 MG TAB PO SCH (08:29)
[2021-06-14] MEDS: ENOXAPARIN INJ 40 MG/0.4 ML SYR SQ SCH (09:52)
[2021-06-14] MEDS: dexAMETHasone 6 MG in SYRINGE 0 ML IV SCH (09:53)
--- NOTE | 2021-06-14 15:56 | Hospitalist Progress Note ---
Date of Service June 14, 2021 Assessment & Plan (1) Acute hypoxemic respiratory failure: Plan: Acute respiratory failure with hypoxia Multifocal COVID-19 pneumonia -CTA:There is no evidence of pulmonary embolus in the main, lobar, or segmental pulmonary arteries. Cardiomegaly. Multifocal airspace consolidation is consistent with the reported history of a viral pneumonia. Radiographic follow- up to resolution is recommended. Hepatomegaly and hepatic steatosis. -CXR:Moderate to extensive bilateral airspace opacities suggestive of an infectious process such as viral pneumonia. Radiographic follow-up to ensure resolution is recommended. Completed Remdesivir course Continue Solumedrol Day #6 Monitor LFTs Lasix as needed Encourage to Prone Leukocytosis secondary to steroids Continue budesonide Titrate oxygen to keep Oxygen Sats > 92% May need 2 Step prior to discharge Saturating low 90s on 2 L of supplemental oxygen Elevated Blood Pressure on presentation Likely situational No known history of hypertension Monitor BP Bp stable Iron deficiency anemia Ferritin levels elevated likely secondary to acute infection Continue Iron supplements Prediabetes HbA1C: 6.3 Consider Insulin therapy if needed DVT Px; Lovenox SQ Code Status Full code Admission and Anticipated Discharge Date Admission Date: June 09, 2021 Subjective Patient is seen and examined bedside No new complaints Doing well Requiring much less supplemental oxygen Saturating 97% while proning Intermittent cough Denies dyspnea, chest pain, nausea, dizziness, abd pain Review of Systems Review of Systems: All systems reviewed & are unremarkable except as noted in Subjective Physical Exam Physical Exam: Physical Exam: Vitals signs as noted above General Appearance:Moderately built and nourished, no apparent distress Head: normocephalic, Atraumatic Eyes: normal inspection, EOMI Neck: supple, Trachea midline Respiratory/Chest: Decreased breath sounds, CTA Cardiovascular: S1, S2, No murmur Abdomen/GI:Soft, Non tender, Bowel sounds present Extremities/Musculoskeletal:normal inspection, no edema Neurologic/Psych:AAOX3, grossly no focal neurological deficits Skin: normal color, warm Results & Data Results & Data ([facility]) Vital Signs (Past 12 Hours) Vital Signs Temp Pulse Pulse Resp BP BP Pulse Ox 06/14/21 15:17 36.6 C 73 18 108/68 93 06/14/21 11:32 36.6 C 72 18 106/66 93 06/14/21 08:04 36.5 C 54 L 18 111/67 96 06/14/21 08:00 55 L 06/14/21 07:52 51 L 18 94 06/14/21 04:13 36.9 C 43 L 20 117/78 90 Laboratory Results [facility] 06/14/21 06:54 Sodium 139 Potassium 3.7 Chloride 108 H Carbon Dioxide 27 BUN 15 Creatinine 0.78 Glucose 91 Calcium 8.4 L Liver Function 06/14/21 Range/Units 06:54 Total Bilirubin 0.4 (0.2-1) mg/dl Direct Bilirubin 0.1 (0-0.2) mg/dl AST 28 (15-37) U/L ALT 56 (12-78) U/L Alkaline Phosphatase 47 (45-117) U/L Albumin 2.6 L (3.4-5.0) gm/dl
[2021-06-15 08:25] LABS: BUN Creatinine Ratio 16.5 (10-20); Calcium 8.7 mg/dl (8.5-10.1); Creatinine Clr Calc Pharmacy 101.9 ml/min; Est GFR (Non-African American) 91.4 ml/min
[2021-06-15] MEDS ORDERED: FUROSEMIDE 20 MG in SYRINGE 0 ML IV ONE (08:47)
[2021-06-15] MEDS: ENOXAPARIN INJ 40 MG/0.4 ML SYR SQ SCH (08:51)
[2021-06-15] MEDS: dexAMETHasone 6 MG in SYRINGE 0 ML IV SCH (08:51)
[2021-06-15] MEDS: FERROUS SULFATE 325 MG TAB PO SCH (08:52)
[2021-06-15] MEDS ORDERED: FUROSEMIDE 40 MG/4 ML VIAL IV SCH (09:00)
[2021-06-15] MEDS: BUDESONIDE 0.5 MG/2 ML VIAL (PULMICORT) NEB SCH (09:07)
[2021-06-15] MEDS: LEVALBUTEROL HCL 0.63 MG/3 ML NEB NEB SCH (09:07)
[2021-06-15 11:41] VITALS: BP 108/68; PULSE 94; TEMP 98.1; O2SAT 90
--- NOTE | 2021-06-15 12:01 | Hospitalist Progress Note ---
Date of Service June 15, 2021 Assessment & Plan (1) Acute hypoxemic respiratory failure: Plan: Acute respiratory failure with hypoxia Multifocal COVID-19 pneumonia -CTA:There is no evidence of pulmonary embolus in the main, lobar, or segmental pulmonary arteries. Cardiomegaly. Multifocal airspace consolidation is consistent with the reported history of a viral pneumonia. Radiographic follow- up to resolution is recommended. Hepatomegaly and hepatic steatosis. -CXR:Moderate to extensive bilateral airspace opacities suggestive of an infectious process such as viral pneumonia. Radiographic follow-up to ensure resolution is recommended. Completed Remdesivir course Continue Solumedrol Day #7 Monitor LFTs Lasix as needed Encourage to Prone Leukocytosis secondary to steroids 2 Step: Did not qualify for oxygen Saturating low 90s on room air Elevated Blood Pressure on presentation Likely situational No known history of hypertension Monitor BP Bp stable Iron deficiency anemia Ferritin levels elevated likely secondary to acute infection Continue Iron supplements Prediabetes HbA1C: 6.3 Consider Insulin therapy if needed DVT Px; Lovenox SQ Code Status Full code Admission and Anticipated Discharge Date Admission Date: June 09, 2021 Subjective Patient is seen and examined bedside Denies dyspnea, chest pain, dizziness, nausea, abd pain Had 2 step: did not qualify for oxygen Minimal cough Eager to get discharged Review of Systems Review of Systems: All systems reviewed & are unremarkable except as noted in Subjective Results & Data Results & Data ([facility]) Vital Signs (Past 12 Hours) Vital Signs Temp Pulse Pulse Pulse Pulse Resp Resp 06/15/21 11:40 36.7 C 94 H 20 06/15/21 09:07 72 18 06/15/21 08:59 82 73 68 20 06/15/21 07:57 36.5 C 57 L 19 06/15/21 03:26 36.6 C 52 L 18 Resp Resp BP BP Pulse Ox Pulse Ox Pulse Ox 06/15/21 11:40 108/68 90 06/15/21 09:07 92 06/15/21 08:59 18 18 90 90 06/15/21 07:57 118/74 91 06/15/21 03:26 131/79 95 Pulse Ox 06/15/21 11:40 06/15/21 09:07 06/15/21 08:59 91 06/15/21 07:57 06/15/21 03:26 Laboratory Results BMP 06/15/21 07:16 Sodium 138 Potassium 4.0 Chloride 105 Carbon Dioxide 29 BUN 15 Creatinine 0.93 Glucose 89 Calcium 8.7
[2021-06-15] MEDS ORDERED: ALBUTEROL HFA 8 GM INHALER INH PRN (12:04)
--- NOTE | 2021-06-15 13:03 | Discharge Summary ---
Date of Service June 15, 2021 Admission HPI Per Admitting Provider No significant medical history. 10 days ago patient had dry cough symptoms with some chest congestion and fatigue symptoms. No chest pain. Sick COVID-19 contacts at home. Outpatient COVID-19 test from urgent care center from last week was positive. Supportive management and isolation recommended. Patient has not received the Covid 19 vaccine. Cough symptoms noted to be clear with worsening shortness of breath as per patient. O2 sats noted to be 80s on room air upon arrival at the ER. Decadron and neb treatment administered at the ER. Medical History as above 2015 colonoscopy was normal Surgical History : Inguinal hernia repair, tonsillectomy/adenoidectomy Family History : Kidney cancer Personal/Social history : Non-smoker, occasional EtOH intake, [employer] employee Admission Exam Per Admitting Provider Physical Exam Physical Exam: GENERAL: Comfortable, pleasant, obese, no respiratory distress SKIN: Normal color, warm HEENT: [place] palpebral conjunctivae, no ptosis, dry buccal mucosa, nasal cannula in place NECK : Supple, no tenderness CHEST : Decreased breath sounds, occasional expiratory wheezes, no tenderness HEART : RRR, no obvious murmurs ABDOMEN: no distention, nontender EXTREMITIES : No LE swelling/tenderness, no other conspicuous deformities noted NEUROLOGIC : Coherent, no facial asymmetry, no other gross focality Principal Diagnosis Acute respiratory failure with hypoxia Multifocal COVID-19 pneumonia Discharge Data Allergies Allergy/AdvReac Type Severity Reaction Status Date / Time No Known Allergies Allergy Unverified 06/09/21 20:18 Consultations 06/09/21 21:06 ED Decision to Admit Stat Ordered Studies 06/12/21 07:00 CT angio chest PE protocol Routine Hospital Course (1) Acute hypoxemic respiratory failure: Acute respiratory failure with hypoxia Multifocal COVID-19 pneumonia -CTA:There is no evidence of pulmonary embolus in the main, lobar, or segmental pulmonary arteries. Cardiomegaly. Multifocal airspace consolidation is consistent with the reported history of a viral pneumonia. Radiographic follow- up to resolution is recommended. Hepatomegaly and hepatic steatosis. -CXR:Moderate to extensive bilateral airspace opacities suggestive of an infectious process such as viral pneumonia. Radiographic follow-up to ensure resolution is recommended. Completed Remdesivir course Continue Solumedrol Day #7 Monitor LFTs Lasix as needed Encourage to Prone Leukocytosis secondary to steroids 2 Step: Did not qualify for oxygen Saturating low 90s on room air Elevated Blood Pressure on presentation Likely situational No known history of hypertension Monitor BP Bp stable Iron deficiency anemia Ferritin levels elevated likely secondary to acute infection Continue Iron supplements Prediabetes HbA1C: 6.3 Consider Insulin therapy if needed DVT Px; Lovenox SQ Code Status Full code Total Time Total Time Spent Total Time Spent (In Minutes): 43 minutes Discharge Plan Discharge Items Patient Disposition: Home - Self-Care Reason For Visit: RESP FAILURE Discharge Diagnosis: Acute respiratory failure with hypoxia Multifocal COVID-19 pneumonia Condition on Discharge: Fair Activity: Per Instructions section Exercise/Sports: Wait until after follow-up appointment Non-emergency contact: Primary Care Provider Call non-emergency contact if: you have any medication questions, your symptoms worsen, your pain is concerning for you and you have a fever Follow-up/Referrals: Cristian Rosas DO [Outside Practitioners] - (Date & Time 06/19/2021 11:20 AM Provider Cristian Rosas DO [facility] PLEASE NOTE THAT THIS IS A TELEPHONE APPOINTMENT. YOUR PHYSICIAN WILL CALL YOU AT THE APPOINTMENT TIME. IF YOU HAVE ANY QUESTIONS REGARDING THIS APPOINTMENT, PLEASE CALL .) Diet: Heart Healthy Addtl Attending Provider Instructions: Follow-up with your Primary Care Physician on 06/19/2021 11:20 AM as scheduled Monitor your Oxygen Saturation using Pulse Oximeter as advised. Seek immediate medical attention if your symptoms reoccur or worsen Please take all medications as instructed on discharge list below. Please call if you have any questions or problems. You can reach a [facility] hospitalist on duty at [facility] 24 hours a day by calling [phone] Home Isolation COVID-19 Instructions The following information about Home Isolation is from the CDC Website: https://www.cdc.gov/coronavirus/2019-ncov/hcp/wlvjxvlc-phdkqbr-zykjrk.html Stay home except to get medical care People who are mildly ill with COVID-19 are able to isolate at home during their illness. You should restrict activities outside your home, except for getting medical care. Do not go to work, school, or public areas. Avoid using public transportation, ride-sharing, or taxis. Separate yourself from other people and animals in your home People: As much as possible, you should stay in a specific room and away from other people in your home. Also, you should use a separate bathroom, if available. Animals: You should restrict contact with pets and other animals while you are sick with COVID-19, just like you would around other people. Although there have not been reports of pets or other animals becoming sick with COVID-19, it is still recommended that people sick with COVID-19 limit contact with animals until more information is known about the virus. When possible, have another member of your household care for your animals while you are sick. If you are sick with COVID-19, avoid contact with your pet, including petting, snuggling, being kissed or licked, and sharing food. If you must care for your pet or be around animals while you are sick, wash your hands before and after you interact with pets and wear a face mask. Call ahead before visiting your doctor If you have a medical appointment, call the healthcare provider and tell them that you have or may have COVID-19. This will help the healthcare providers office take steps to keep other people from getting infected or exposed. Wear a face mask You should wear a face mask when you are around other people (e.g., sharing a room or vehicle) or pets and before you enter a healthcare providers office. If you are not able to wear a face mask (for example, because it causes trouble breathing), then people who live with you should not stay in the same room with you, or they should wear a face mask if they enter your room. Cover your coughs and sneezes Cover your mouth and nose with a tissue when you cough or sneeze. Throw used tissues in a lined trash can. Immediately wash your hands with soap and water for at least 20 seconds or, if soap and water are not available, clean your hands with an alcohol-based hand cold storage superintendent that contains at least 60% alcohol. Clean your hands often Wash your hands often with soap and water for at least 20 seconds, especially after blowing your nose, coughing, or sneezing; going to the bathroom; and be fore eating or preparing food. If soap and water are not readily available, use an alcohol-based hand cold storage superintendent with at least 60% alcohol, covering all surfaces of your hands and rubbing them together until they feel dry. Soap and water are the best option if hands are visibly dirty. Avoid touching your eyes, nose, and mouth with unwashed hands. Avoid sharing personal household items You should not share dishes, drinking glasses, cups, eating utensils, towels, or bedding with other people or pets in your home. After using these items, they should be washed thoroughly with soap and water. Clean all high-touch surfaces everyday High touch surfaces include counters, tabletops, doorknobs, bathroom fixtures, toilets, phones, keyboards, tablets, and bedside tables. Also, clean any surfaces that may have blood, stool, or body fluids on them. Use a household cleaning spray or wipe, according to the label instructions. Labels contain instructions for safe and effective use of the cleaning product including precautions you should take when applying the product, such as wearing gloves and making sure you have good ventilation during use of the product. Monitor your symptoms Seek prompt medical attention if your illness is worsening (e.g., difficulty breathing).Beforeseeking care, call your healthcare provider and tell them that you have, or are being evaluated for, COVID-19. Put on a face mask before you enter the facility. These steps will help the healthcare providers office t o keep other people in the office or waiting room from getting infected or exposed. Ask your healthcare provider to call the local or state health department. Persons who are placed under active monitoring or facilitated self- monitoring should follow instructions provided by their local health department or occupational health professionals, as appropriate. When working with your local health department check their available hours. If you have a medical emergency and need to call 911, notify the dispatch personnel that you have, or are being evaluated for COVID-19. If possible, put on a face mask before emergency medical services arrive. Discontinuing home isolation Patients with confirmed COVID-19 should remain under home isolation precautions until the risk of secondary transmission to others is thought to be low. The decision to discontinue home isolation precautions should be made on a clbf-vo-nyli basis, in consultation with healthcare providers and state and local health departments. Coronavirus disease 2019 (COVID-19) is a virus that causes a respiratory illness. It is caused by a coronavirus called 2019 novel coronavirus (2019- nCoV). There are many types of coronavirus. Coronaviruses are a very common cause of bronchitis. They may sometimes cause lung infection(pneumonia). Symptoms can range from mild to severe resp iratory illness. These viruses are also foundin some animals. COVID-19 was first found in people in [facility], in late 2018. In 2020, several cases of COVID-19 have been confirmed in the [place] Public health officials are working to find the source. How the virus spreads is not yet fully known. It may be spread through droplets of fluid that a person coughs or sneezes into the air. It may be spread if you touch a surface with virus on it, such as a handle or object, and then touch your mouth. What are the symptoms of COVID-19? Some people have no symptoms or mild symptoms. Symptoms may appear 2 to 14 days after contact with the virus. Symptoms can include: Fever Coughing Trouble breathing What are possible complications from COVID-19? In many cases, this virus can cause infection (pneumonia) in both lungs. In some cases, this can cause . How is COVID-19 diagnosed? Your healthcare provider will ask about your symptoms. He or she will also ask about your recent travel and contact with sick people. Testing for the virus is only done through the CDC. If yourhealthcare provider thinks you may have COVID- 19, he or she will work with your local health department and the CDC on testing. Follow all instructions from your healthcare provider. COVID-19 is diagnosed by: Nasal and throat swab. A cotton-tipped swab is wiped inside your nose or throat. This is done to check for viruses in your nasal mucus. Sputum culture. A small sample of mucus coughed from your lungs (sputum) is collected if you have a cough. It is checked for the virus. How is COVID-19 treated? There is currently no medicine to treat the virus. Treatment is done to help your body while it fights the virus. This is known as supportive care. Supportive care may include: Pain medicine. These include acetaminophen and ibuprofen. They are used to help ease pain and reduce fever. Bed rest. This helps your body fight the illness. For severe illness, you may need to stay in the hospital. Care during severe illness may include: IV (intravenous) fluids.These are given through a vein to help keep your body hydrated. Oxygen. Supplemental oxygen or ventilation with a breathing machine (ventilator) may be given. This is done to keep enough oxygen in your body. Are you at risk for COVID-19? If youve been to a place where people have been sick with this virus, you are at risk for infection. You are at risk if you: Recently traveled to an affected area Had contact with a sick person who recently traveled to this area Had contact with a person who was diagnosed with COVID-19 How can COVID-19 be prevented? There is no vaccine yet. The best prevention is to not have contact with the virus. The CDC advises that people should not travel to areas where there are COVID-19 outbreaks right now for any reason that is not urgent. To help prevent spreading the infection, wash your hands often, or use an alcohol-basedhand cold storage superintendent. If you are in an area with COVID-19: Wash your hands often. Or use an alcohol-based hand cold storage superintendent often. Only touch your eyes, nose, or mouth with clean hands. Dont have contact with people who are sick. Follow local instructions about being in public. For example, you may be told to not use public transport for a period of time. Stay away from markets that have live or animals. Wash your hands after touching any animals. Don't touch animals that may be sick. Dont share eating or drinking tools with sick people. Dont kiss someone who is sick. Clean surfaces often with disinfectant. If you were in an area with COVID-19 in the last 14 days: Call your healthcare provider. He or she can talk with local health staff to see what action may be needed. Follow all instructions from your provider. Take your temperature every morning and evening for at least 14 days. This is to check for fever. Keep a record of the readings. Keep watch for symptoms of the virus. Tell your provider right away if you have symptoms. If you were in an area with COVID-19 and have a fever or other symptoms: Dont panic. Keep in mind that other illnesses can cause similar symptoms. Stay away from work, school, and public places. Limit physical contact with family members. Don't kiss anyone or share eating or drinking utensils. Clean surfaces you touch with disinfectant. This is to help prevent the virus from spreading. Call your healthcare provider. Explain that you have been exposed to COVID-19 and have symptoms. Do this before going to any hospital. Wait for instructions. Keep in mind that healthcare staff may wear protective equipment such as masks, gowns, gloves, and eye protection. You may be put in a separate room. This is to prevent the possible virus from spreading. Tell the healthcare staff about recent travel. This includes local travel on public transport. Staff may need to find other people you have been in contact with. Follow all instructions the healthcare staff give you. If you have been diagnosed with COVID-19 Follow all instructions from your healthcare provider. Dont leave your home, except to get medical care. Call your healthcare providers office before going. They can prepare and give you instructions. This will help prevent the virus from spreading. Dont go to work, school, or public areas. Dont use public transport or taxis. Stay away from other people in your home. Have them wear face masks around you. Dont share household items or food. Wear a face mask if you can. This includes at home or in a medical facility. Cover your face with a tissue when you cough or sneeze. Throw the tissue away. Wash your hands. Wash your hands often. Caregivers should: Follow all instructions from healthcare staff. Wear a face mask and protective clothing as advised. Wash hands often. Keep track of the sick persons symptoms. Clean surfaces, fabrics, and laundry thoroughly. Keep other people away from the sick person. When to call your healthcare provider Call your healthcare provider: If youve recently traveled and have symptoms If you have been diagnosed with COVID-19 and your symptoms are worse To learn more To find out more about COVID-19, visit the CDC website at www.cdc.gov/coronavirus/2019-ncov/index.html. [employer]. [address] [place] [address], [place] [address]. All rights reserved. This information is not intended as a substitute for professional medical care. Always follow your healthcare professional's instructions. This information has been adapted from [employer] Pending Studies at Discharge: No Stand-Alone Forms: My Weight Wins, Smoking Cessation Medications and DC Order Prescriptions: New albuterol sulfate [Ventolin HFA] 90 mcg/actuation Hfa Aerosol Inhaler 2 puff inhalation Q6H PRN (Reason: shortness of breath or wheezing) Qty: 1 RF: 0 ferrous sulfate 325 mg (65 mg iron) Tablet,Delayed Release (Dr/Ec) 325 mg PO QAM Qty: 30 RF: 1 prednisone 20 mg tablet 20 mg PO DAILY 3 Days Qty: 3 RF: 0 Discharge Orders: Discharge Order (Routine); Ordered 06/15/21 Ordered By: Jayson Dennis/Other Patient Handouts: A1C, 5 Steps for Eating Healthier Admission Data Admit Date/Time: 06/09/21 21:54 Attending Provider: Jayson Zurita Admit Provider: Andrew Reddy Primary Care Provider: PCP,NO Other Providers: Andrew Reddy Other Interventions: Discharge Summary Assessment (RN) Last Done: 06/15/21 13:18
== END 2021-06-15 13:42 | disposition home or self-care (01) | DRG 177 ==
LOC: ED 19:14 → 2S 21:54
DX: J12.82 Pneumonia due to coronavirus disease 2019; D72.829 Elevated white blood cell count, unspecified; U07.1 COVID-19; Y92.239 Unspecified place in hospital as the place of occurrence of the external cause; J96.01 Acute respiratory failure with hypoxia; R73.03 Prediabetes; D50.9 Iron deficiency anemia, unspecified; T38.0X5A Adverse effect of glucocorticoids and synthetic analogues, initial encounter; Z87.891 Personal history of nicotine dependence; R03.0 Elevated blood-pressure reading, without diagnosis of hypertension